=== PATIENT | male | born 1990 | race Caucasian/White ===

== ENCOUNTER 2016-07-21 05:50 | Day surgery (SDC) | payer BC ==
--- NOTE | ~2016-07-21 | OP ---
Record Of Operation [facility] [address] [place]. [address] NAME: VIOLETTA REILLY : 89 STATUS : [place] [facility] [place] PAT#: [id number] AGE: 25 ADM/REG DATE : 07/21/16 MR#: [id number] REPORT SERV DATE: 07/21/16 DICTATED BY: ZURDO WU DATE: 07/21/16 REPORT STATUS : Draft TRANSCRIBED BY: MODL DATE: 07/21/16 DATE OF PROCEDURE: 07/21/2016 PREOPERATIVE DIAGNOSES: Right-sided L5-S1 disk herniation and nerve root compression with lumbar radiculopathy. POSTOPERATIVE DIAGNOSES: Right-sided L5-S1 disk herniation and nerve root compression with lumbar radiculopathy. PROCEDURES: Right-sided L5-S1 microdiskectomy, use of operative microscope, minimal access spine technology, and intraoperative O-arm CT scan with computer navigation. SURGEON: Zurdo Wu DO. ANESTHESIA: General. ESTIMATED BLOOD LOSS: 5 mL. COMPLICATIONS: None. INDICATIONS: The patient is a pleasant 25-year-old with intractable right leg pain, failed conservative treatment, and after discussion of risks and benefits, elected to proceed with surgical intervention. PROCEDURE IN DETAIL: I identified the patient in the holding area. Consent was obtained. Went to the operating room. Underwent general anesthesia with endotracheal intubation. Prepped and draped in usual sterile fashion. Operative safety pause was performed, and then we proceeded with surgery. An O-arm registration frame was placed in the iliac crest. O- arm was brought in for intraoperative CT scan. Computer registration materials were verified then under computer guidance, a right longitudinal incision was made over the L5-S1 level, taken down through the fascial layer. Tube dilators were used to minimally invasively dissect down to the right L5-S1 interspace. An operative microscope was brought in. A saul was used to perform a laminotomy. Kerrison was used to perform a foraminotomy. Disk was incised and multiple free fragments of disk material removed with pituitary. The L5 and S1 nerve roots were identified and free of compression at the end of the case. Irrigation was performed. Hemostasis was achieved. A 40 mg of Depo-Medrol was injected over the nerve roots. Layered closure was performed. Sterile dressings applied. The patient was awoke and extubated, taken to recovery room in stable condition. OPERATIVE FINDINGS: L5-S1 right-sided disc herniation. RUSTY/SANDRA Zurdo Boyd Record Of Operation [address] [place]. [address] NAME: MELBAVIOLETTA : 89 STATUS : [place] [facility] [place] PAT#: [id number] AGE: 25 ADM/REG DATE : 07/21/16 MR#: [id number] REPORT SERV DATE: 07/21/16 DICTATED BY: ZURDO WU DATE: 07/21/16 REPORT STATUS : Draft TRANSCRIBED BY: SANDRA DATE: 07/21/16 DO Jazmin / [id number] CC: Zurdo Wu DO
[~2016-07-21 05:50] MED LIST: TRAZ50 PO
== END 2016-07-21 13:25 | disposition home or self-care (01) ==
LOC: SDC 05:50
PROVIDERS: Orthopaedic Surgery
PROC: 01NB0ZZ Release Lumbar Nerve, Open Approach (ICD-10-PCS; 2016-07-21)
PROC: 0SB20ZZ Excision of Lumbar Vertebral Disc, Open Approach (ICD-10-PCS; principal; 2016-07-21 06:45)
DX: M51.06 Intervertebral disc disorders with myelopathy, lumbar region (principal); M51.17 Intervertebral disc disorders with radiculopathy, lumbosacral region; Z79.899 Other long term (current) drug therapy; Z87.81 Personal history of (healed) traumatic fracture; Z98.890 Other specified postprocedural states
CPT/HCPCS: 88304; 88311; A9270-GY; J0690; J1030; J2250; J2270; J2370; J2405; J2710; J3010